=== PATIENT | female | born 1955 | race American Indian/Alaskan Native ===

== ENCOUNTER 2017-08-26 12:33 | Emergency (ER) | payer OTHER ==
[~2017-08-26] VITALS: Ht 157.5 cm; Wt 72.6 kg
[2017-08-26] MEDS ORDERED: BLOOD PRESSURE M (12:47)
[2017-08-26] MEDS ORDERED: ZESTRIL2.5 MG PO (15:06)
[2017-08-26] MEDS ORDERED: CRESTOR10 MG PO (15:06)
[2017-08-26] MEDS ORDERED: OMEPRAZOLE20 MG PO (15:06)
[2017-08-26] MEDS ORDERED: VITAMIN D34000 UNIT PO (15:07)
[2017-08-26] MEDS ORDERED: GLIPIZIDE XL10 MG PO (15:07)
[2017-08-26] MEDS ORDERED: ONDANSETRON ODT8 MG PO (17:13)
== END 2017-08-26 17:23 | disposition home or self-care (01) ==
LOC: ED 12:33
DX: K29.70 Gastritis, unspecified, without bleeding (principal); E11.9 Type 2 diabetes mellitus without complications; J45.909 Unspecified asthma, uncomplicated; Z87.891 Personal history of nicotine dependence; Z79.899 Other long term (current) drug therapy
CPT/HCPCS: 71020; 76705; 80053; 81001; 83690; 85025; 96361; 96374; 96375; 96376; 99284; J1170; J2405; J7030

== ENCOUNTER 2018-07-25 10:59 | Observation (INO) | payer OTHER ==
[~2018-07-25] VITALS: Ht 157.5 cm; Wt 67.7 kg
--- OUTSIDE RECORDS SUMMARY | ~2018-07-25 | XMS | Encounter Summary ---
Demographics + + + | Address | [address] | | | [place] [address] | + + + | Home Phone | | + + + | Preferred Language | Unknown | + + + | Marital Status | Single | + + + | Anabaptism Affiliation | 1074 | + + + | Race | Unknown | + + + | Ethnic Group | Unknown | + + + Author + + + | Author | [facility] | | | and [place] | + + + | Organization | [facility] | | | and [place] | + + + | Address | Unknown | + + + | Phone | Unavailable | + + + Support + + +---------+ + | Name | Relationship | Address | Phone | + + +---------+ + | Dulce Dow | ECON | Unknown | | + + +---------+ + Care Team Providers + +------+ + | Care Assembly Repairer Name | Role | Phone | + +------+ + | Orquidea Dubose PA-C | PCP | | + +------+ + Encounter Details +--------+ + + + + | Date | Type | Department | Care Team | Description | +--------+ + + + + | 05/20/ | Abstract | [facility] | Bre, | | | 2017 | | PHYSIATRY [address] | [address]E [address] | | | | | [place], | [address] [place] | | | | | [place] [address] | [place] [address] | | | | | [phone] | [phone] | | | | | | | | +--------+ + + + + Social History + + + +--------+------+ | Tobacco Use | Types | Packs/Day | Years | Date | | | | | Used | | + + + +--------+------+ | Former Smoker | Cigarettes | | | | + + + +--------+------+ + +---+---+---+ | Smokeless Tobacco: | | | | | Never Used | | | | + +---+---+---+ + + + | Sex Assigned at | Date Recorded | | | | + + + | Not on file | | + + + as of this encounter Plan of Treatment Not on fileas of this encounter Visit Diagnoses Not on filein this encounter"
--- OUTSIDE RECORDS SUMMARY | ~2018-07-25 | XMS | Clinical Summary ---
Demographics + + + | Address | [address] | | | [place] [address] | + + + | Home Phone | | + + + | Preferred Language | Unknown | + + + | Marital Status | Single | + + + | Jew Affiliation | 1074 | + + + | Race | Unknown | + + + | Ethnic Group | Unknown | + + + Author + + + | Author | [facility] | | | and [place] | + + + | Organization | [facility] | | | and [place] | [...] Team Providers + +------+ + | Care Loss Prevention Auditor Name | Role | Phone | + +------+ + | Orquidea Dubose PA-C | PP | | + +------+ + Allergies + + + + + + | Active Allergy | Reactions | Severity | Noted | Comments | | | | | Date | | + + + + + + | Metformin | Other (See Comments) | | 05/20/20 | Reaction not | | | | | 18 | specified in outside | | | | | | medical records | + + + + + + Current Medications + + +-------+---------+------+------+-------+ | Prescription | Sig. | Disp. | Refills | Star | End | Statu | | | | | | t | Date | s | | | | | | Date | | | + + +-------+---------+------+------+-------+ | cyclobenzaprine | Take 10 mg by mouth | | | 05/2 | | Activ | | (FLEXERIL) 10 mg | nightly. | | | 0/20 | | e | | tablet | | | | 11 | | | + + +-------+---------+------+------+-------+ | Aspirin (ADULT | Take 81 mg by mouth | | | 05/2 | | Activ | | ASPIRIN LOW | Daily. | | | 0/20 | | e | | STRENGTH) 81 MG TBDP | | | | 11 | | | + + +-------+---------+------+------+-------+ | simvastatin | Take 80 mg by mouth | | | 05/2 | | Activ | | (ZOCOR) 80 mg tablet | every evening. | | | 0/20 | | e | | | | | | 11 | | | + + +-------+---------+------+------+-------+ | | Take 10-10 mg by | | | 05/2 | | Activ | | ezetimibe-simvastati | mouth every evening. | | | 0/20 | | e | | n (VYTORIN) 10-10 MG | | | | 11 | | | | per tablet | | | | | | | + + +-------+---------+------+------+-------+ | gabapentin | Take 800 mg by mouth | | | 05/2 | | Activ | | (NEURONTIN) 800 MG | Daily. | | | 0/20 | | e | | tablet | | | | 11 | | | + + +-------+---------+------+------+-------+ | glipiZIDE | Take 5 mg by mouth | | | 05/2 | | Activ | | (GLIPIZIDE XL) 5 mg | Daily. | | | 0/20 | | e | | 24 hr tablet | | | | 11 | | | + + +-------+---------+------+------+-------+ | clotrimazole | apply to affected | | | 05/2 | | Activ | | (CLOTRIMAZOLE AF) 1% | area twice daily for | | | 0/20 | | e | | cream | fungal infection | | | 11 | | | + + +-------+---------+------+------+-------+ | albuterol | 2 puffs by mouth | | | 05/2 | | Activ | | (PROVENTIL HFA) 90 | ywice daily as | | | 0/20 | | e | | mcg/puff inhaler | needed for shortness | | | 11 | | | | | of breath | | | | | | + + +-------+---------+------+------+-------+ | omega-3 acid ethyl | two capsules by | | | 05/2 | | Activ | | esters (LOVAZA) 1 g | mouth twice daily | | | 0/20 | | e | | capsule | with meals | | | 11 | | | + + +-------+---------+------+------+-------+ | metformin | take 2 and one half | | | 05/2 | | Activ | | (GLUCOPHAGE) 1000 MG | tablets by mouth | | | 0/20 | | e | | tablet | every evening | | | 11 | | | + + +-------+---------+------+------+-------+ | | Take as directed | | | 09/1 | | Activ | | HYDROcodone-acetamin | when needed | | | 3/20 | | e | | ophen (NORCO) 5-325 | | | | 12 | | | | mg per tablet | | | | | | | + + +-------+---------+------+------+-------+ | metroNIDAZOLE | Take as directed | | | 09/1 | | Activ | | (FLAGYL) 500 MG | when needed | | | 3/20 | | e | | tablet | | | | 12 | | | + + +-------+---------+------+------+-------+ | diazepam (VALIUM) | Take 5 mg by mouth | | | | | Activ | | 5 mg tablet | every 6 hours as | | | | | e | | | needed for Anxiety. | | | | | | + + +-------+---------+------+------+-------+ | lisinopril | Take 2.5 mg by mouth | | | | | Activ | | (PRINIVIL,ZESTRIL) | Daily. | | | | | e | | 2.5 MG tablet | | | | | | | + + +-------+---------+------+------+-------+ | omeprazole | Take 20 mg by mouth | | | | | Activ | | (PRILOSEC) 20 mg | every morning | | | | | e | | capsule | (before breakfast). | | | | | | + + +-------+---------+------+------+-------+ | penicillin | Take 500 mg by mouth | | | | | Activ | | (VEETID) 500 mg | 4 times daily. | | | | | e | | tablet | | | | | | | + + +-------+---------+------+------+-------+ | cholecalciferol | Take 5,000 Units by | | | | | Activ | | (VITAMIN D-3) 5000 | mouth Daily. | | | | | e | | units CAPS | | | | | | | + + +-------+---------+------+------+-------+ | glipiZIDE | Take 10 mg by mouth | | | | | Activ | | (GLUCOTROL XL) 10 mg | daily (with | | | | | e | | ER tablet | breakfast). | | | | | | + + +-------+---------+------+------+-------+ | rosuvastatin | Take 10 mg by mouth | | | | | Activ | | (CRESTOR) 10 mg | nightly. | | | | | e | | tablet | | | | | | | + + +-------+---------+------+------+-------+ Active Problems + + + | Problem | Noted Date | + + + | H-PYLORI | 04/21/2011 | + + + + + | Overview: ICD-10 Record update | + + + + + | DIVERTICULOSIS | 04/21/2011 | + + + | ABDOMINAL PAIN, GENERALIZED | | + + + | COLITIS | | + + + | DIABETES MELLITUS, TYPE II | | + + + | OVERWEIGHT | | + + + + + | Overview: ICD-10 Record update | + + + +---+ | COLONIC POLYPS, ADENOMATOUS | | + +---+ Encounters +--------+ + + + + | Date | Type | Specialty | Care Team | Description | +--------+ + + + + | 05/20/ | Abstract | | Bre, | | | 2017 | | | JOE Nelson | | +--------+ + + + + from Last 3 Months Family History + + + + + | Medical History | Relation | Name | Comments | + + + + + | Alcohol abuse | Father | MONTEE | | | | | TEWEE | | + + + + + | Cancer | Mother | ANSELMO | Lymphoma | | | | VICKI | | | | | COLWASH | | + + + + + | Anemia | Sister | DULCE | Aplastic | | | | COLWASH | | + + + + + + + + + + | Relation | Name | Status | Comments | + + + + + | Father | MONTEE | | Alcoholism | | | TEWEE | (Age | | | | | 30-39) | | + + + + + | Mother | ANSELMO VICKI | Alive | | | | COL[place] | | | + + + + + | Sister | DULCE | Alive | | | | COLWASH | | | + + + + + Social History + [...] on file | | + + + Last Filed Vital Signs + + + + | Vital Sign | Reading | Time Taken | + + + + | Blood Pressure | 102/60 | 03/28/2011 0000 PDT | + + + + | Pulse | - | - | + + + + | Temperature | - | - | + + + + | Respiratory Rate | - | - | + + + + | Oxygen Saturation | - | - | + + + + | Inhaled Oxygen | - | - | | Concentration | | | + + + + | Weight | 83.9 kg (185 lb) | 03/28/2011 0000 PDT | + + + + | Height | 157.5 cm (5' 2") | 03/28/2011 0000 PDT | + + + + | Body Mass Index | 33.84 | 03/28/2011 0000 PDT | + + + + Plan of Treatment + + + + + | Health Maintenance | Due Date | Last Done | Comments | + + + + + | Vaccine: | | | | | Dtap/Tdap/Td (1 - | 4 | | | | Tdap) | | | | + + + + + | Cervical Cancer | | | | | Screening (Pap) | 5 | | | + + + + + | Vaccine: Zoster (1 | | | | | of 2) | 5 | | | + + + + + | Vaccine: Influenza | | | | | (#1) | 8 | | | + + + + + Results Not on filefrom Last 3 Months Insurance + +--------+ +--------+ +---------+ | Payer | Benefi | Subscriber | Type | Phone | Address | | | t Plan | ID | | | | | | / | | | | | | | Group | | | | | + +--------+ +--------+ +---------+ | [place] | MEDICA | [id number] | Medica | [phone] | | | [place] | | id | [id number] | | | | PLUS | | | | | + +--------+ +--------+ +---------+ | [employer] | IHS | [id number] | Indemn | | | | SERVICE | YELLOW | | ity | | | | | [place]WK | | | | | + +--------+ +--------+ +---------+ + +--------+ +--------+ + + | Guarantor Name | Accoun | Relation to | Date | Phone | Billing Address | | | t Type | Patient | of | | | | | | | | | | + +--------+ +--------+ + + | COLLETTE VIEYRA | Person | Self [birth year] | Home: | [address] | | | gerri/Suresh | | [phone] | [place] [address] | | | humberto | | | [phone] | | + +--------+ +--------+ + +
--- OUTSIDE RECORDS SUMMARY | ~2018-07-25 | XMS | Encounter Summary ---
Demographics + + + | Address | [address] | | | [place] [address] | + + + | Home Phone | | + + + | Preferred Language | Unknown | + + + | Marital Status | Single | + + + | Yazidism Affiliation | 1074 | + + + | Race | Unknown | + + + | Ethnic Group | Unknown | + + + Author + + + | Author | [facility] | | | and [place] | + + + | Organization | [facility] | | | and [place] | [...] Team Providers + +------+ + | Care Occupational Therapy Specialist Name | Role | Phone | + [...] [address] | | | | [place], | [address] [place] | | | | | [place] [address] | [place] [address] | | | | | [phone] | [phone] | | | | | | | [...]
--- OUTSIDE RECORDS SUMMARY | ~2018-07-25 | XMS | Clinical Summary ---
Demographics + + + | Address | [address] | | | [place] [address] | + + + | Home Phone | | + + + | Preferred Language | Unknown | + + + | Marital Status | Single | + + + | Catholic Affiliation | 1074 | + + + | Race | Unknown | + + + | Ethnic Group | Unknown | + + + Author + + + | Author | [facility] | | | and [place] | + + + | Organization | [facility] | | | and [place] | [...] Team Providers + +------+ + | Care Soda Dialyzer Name | Role | Phone | + [...] +---------+ | [place] | MEDICA | [id number] | Med[place] | [phone] | | | [place] | | id | [phone] | | | | PLUS | | | | | + +--------+ +--------+ +---------+ | [facility] | IHS | [id number] | Indemn | | | | SERVICE [...] | [phone] | [phone] | [place] [address] | | | [place]to | | | [phone] | | + +--------+ +--------+ + +
--- OUTSIDE RECORDS SUMMARY | ~2018-07-25 | XMS | Encounter Summary ---
Demographics + + + | Address | [address] | | | [place] [address] | + + + | Home Phone | | + + + | Preferred Language | Unknown | + + + | Marital Status | Single | + + + | Baptism Affiliation | 1074 | + + + | Race | Unknown | + + + | Ethnic Group | Unknown | + + + Author + + + | Author | [facility] | | | and [place] | + + + | Organization | [facility] | | | and [place] [...] Team Providers + +------+ + | Care Industrial Pipefitter Journeyman Name | Role | Phone | + [...] [address] | | | | [place], | [address] [place] | | | | | [place] [address] | [place] [address] | | | | | [phone] | [phone] | | | | | | | [...]
--- OUTSIDE RECORDS SUMMARY | ~2018-07-25 | XMS | Clinical Summary ---
Demographics + + + | Address | [address] | | | [place] [address] | + + + | Home Phone | | + + + | Preferred Language | Unknown | + + + | Marital Status | Single | + + + | Adventist Affiliation | 1074 | + + + | Race | Unknown | + + + | Ethnic Group | Unknown | + + + Author + + + | Author | [facility] | | | and [place] | + + + | Organization | [facility] | | | and [place] [...] Team Providers + +------+ + | Care Information Tech Name | Role | Phone | + [...] +---------+ | [employer] | MEDICA | [id number] | Med[place] | [phone] | | | | [place] | | id | [phone] | | | | PLUS | | | | | + +--------+ +--------+ +---------+ | [facility] | IHS | [id number] | Indemn | | | | SERVICE [...] | [phone] | [phone] | [place] [address] | | | [place]to | | | [phone] | | + +--------+ +--------+ + +
[~2018-07-25 10:59] MED LIST: BLOOD PRESSURE M; CRESTOR10 MG PO; GLIPIZIDE XL10 MG PO; OMEPRAZOLE20 MG PO; ONDANSETRON ODT8 MG PO; VITAMIN D34000 UNIT PO; ZESTRIL2.5 MG PO
--- NOTE | 2018-07-25 17:30 | NUR ---
PT ARRIVED TO FLOOR VIA STRETCHER, TRANSFERRED TO HOSPITAL BED INDEPENDENTLY. PT REPORTS NAUSEA AND ABD CRAMPING. ALERT AND ORIENTED. LUNGS CLEAR, ACTIVE BT. IV FLUSHES WELL, DRESSING CDI. PT TAKING SIPS OF WATER. CALL LIGHT WITHIN REACH.
--- NOTE | 2018-07-25 17:52 | NUR ---
NOTIFIED DR. MATTHEWS OF ELEVATED BLOOD PRESSURE. PT ASYMPTOMATIC AT THIS TIME.
--- NOTE | 2018-07-25 18:15 | NUR ---
PT SBA TO RESTROOM, VOIDED AND HAD SMALL LOOSE STOOL. PT BACK TO BED AND HAD APPROX 300ML OF EMESIS, MEDICATED WITH IV PHENERGAN. CALL LIGHT WITHIN REACH.
--- NOTE | 2018-07-25 19:10 | NUR ---
REPORT RECEIVED FROM OFFGOING RN OUTSIDE OF PT'S DOOR DUE TO CONTACT PRECAUTIONS. PT RESTING IN BED WITH EYES CLOSED. CALL LIGHT WITHIN REACH.
--- NOTE | 2018-07-25 20:48 | NUR ---
PATIENT CALLED WANTING TO USE THE BATHROOM. 1 PA SBA. PATIENT IS BACK IN BED. VITAL SIGNS AND I&O DONE AND CHARTED. ICE WATER REFILLED. NO OTHER NEEDS AT THIS TIME. CALL LIGHT AND TABLE WITHIN REACH.
--- NOTE | 2018-07-25 22:23 | NUR ---
PT ASSESSMENT COMPLETE. PT REPORTS NAUSEA, HAD EMESIS 100 ML. PRN ZOFRAN ADMINISTERED. PT REPORTS ZOFRAN IS HELPFUL, FEELING LESS NAUSATED. BT'S ACTIVE. PT REPORTS TENDERNESS TO ABD PALPATION. PT DENIES OTHER NEEDS AT THIS TIME. CALL LIGHT WITHIN REACH.
--- NOTE | 2018-07-26 00:11 | NUR ---
PT RESTING IN BED WITH EYES CLOSED. PT SNORING AUDIBLY. DOES NOT WAKE WHILE GLAZE HANDLER IN DOORWAY. PT APPEARS TO BE SLEEPING. CALL LIGHT WITHIN REACH.
--- NOTE | 2018-07-26 01:56 | NUR ---
PT ASSESSMENT COMPLETE. PT REPORTS THAT SHE IS FEELING MUCH IMPROVED. STATES THAT SHE FEELS LIKE HER SKIN TONE HAS IMPROVED FROM ADMISSION. PT DENIES NAUSEA, SOB, PAIN. BT'S REMAIN ACTIVE. PT DENIES ABD TENDERNESS. PT ASSISTED TO THE BATHROOM. PT ABLE TO VOID. STATES THAT SHE FELT NO URGE TO HAVE BM. STOOL SAMPLE REMAINS UNCOLLECTED AT THIS TIME. PT SLIGHTLY UNSTEADY ON HER FEET, 1 PA ASSIST REQUIRED TO GO TO THE BATHROOM AND BACK TO BED. EDUCATION REINFORCED REGARDING CALL LIGHT USE, NOT GETTING OUT OF BED UNASSISTED. PT STATES UNDERSTANDING. CALL LIGHT WITHIN PT REACH.
--- NOTE | 2018-07-26 06:00 | NUR ---
PT ASSESSMENT COMPLETE. PT CONTINUES TO STATE THAT SHE FEELS MUCH IMPROVED. STATES THAT NAUSEA IS MINIMAL. BT'S ACTIVE. ABD TENDER TO PALPATION. PT ASSISTED UP TO BATHROOM WITH 1 PA. PT CONTINUES TO BE UNABLE TO HAVE BM IN ORDER TO OBTAIN STOOL SAMPLE. PT ASSISTED BACK TO BED, DENIES FURTHER NEEDS AT THIS TIME. CALL LIGHT WITHIN PT REACH.
--- NOTE | 2018-07-26 06:24 | NUR ---
PT SLEPT MOST OF SHIFT. ZOFRAN FOR N/V X 1 @ 0. PT REPORTS FEELING MUCH IMPROVED SINCE YESTERDAY. NO BM THIS SHIFT. STOOL SAMPLE STILL NEEDED. ABD REMAINS TENDER TO PALPATION. ACCUCHMARGARITO, SSI. 1 PA. AMY RUSSO. LR + 20k @ 125.
--- NOTE | 2018-07-26 08:00 | NUR ---
patient setting up in bed eating Breakfast. hand and face washed. fresh ice water given. patient states may want a shower later today, call light in reach. no other needs at this time.
[2018-07-26] MEDS ORDERED: ALKA-SELTZER E1 EACH PO (09:36)
--- NOTE | 2018-07-26 09:37 | NUR ---
MED REC COMPLETE
--- NOTE | 2018-07-26 12:31 | NUR ---
ROUNDED ON PATIENT FOR MEDICATION ADMINISTRATION. REPORTED FEELING NAUSEOUS, PRN ZOFRAN ADMINSTERED. IVF REPLACED. NO COMPLAINTS OF PAIN.
--- NOTE | 2018-07-26 15:04 | NUR ---
ROUNDED ON PATIENT FOR AFTERNOON ASSESSMENT. PATIENT RESTING COMFORTABLY IN BED. CALL LIGHT WITHIN REACH. IV FLUIDS INFUSING. PATIENT REPORTED HAVING THE CHILLS, TEMPERATURE WAS ASSESS TO BE 98.8 F. PATIENT ALSO REPORTED HAVING SOME ABDOMINAL PAIN THAT FELT "TIGHT" AND STATED THAT A SIMILAR PAIN WAS IN HER "LEFT LOWER SIDE", STATES REPOSITIONING HELPS WITH PAIN MANAGEMENT. THIS RN ASSISTED PATIENT UP TO THE RESTROOM, UP TO CHAIR NOW, REPORTED DIZZINESS AFTER USING THE RESTROOM, DIZZINESS RESOLVED AFTER SITTING DOWN. BROUGHT PATIENT WARM BLANKET AND ICE WATER.
--- NOTE | 2018-07-26 18:07 | NUR ---
ROUNDED ON PATIENT FOR MEDICATION ADMINSTRATION, RESTING COMFORTABLY IN BED. FAMILY AT BEDSIDE. PATIENT REPORTS HAVING NAUSEA AND DECREASED APPETITE, "THATS WHY I COULDN'T EAT MY DINNER", PATIENT STATES THEY WOULD LIKE SOMETHING FOR NAUSEA, PRN URIEL PROVIDED. PATIENT UP TO BATHROOM WITH ASSISTANCE FROM THIS RN, CHURCH ADMINISTRATOR NOW WITH PATIENT.
--- NOTE | 2018-07-26 18:25 | NUR ---
URIEL X2. POOR APPETITE. SBA TO BATHROOM. LR 20KCL @ 125. TIMING OFF ON JAN DUE TO PHARMACY NEEDING TO KNOW WHEN NEXT BAG NEEDED TO BE MADE. MAG RIDER THIS MORNING. MAG 1.2. ADA DIET. ACCU CHECKS.
--- NOTE | 2018-07-26 18:34 | NUR ---
PATIENT UP TO BATHROOM, 1 PERSON ASSIST. RN IN ROOM. RN TOOK VITALS AND I'S & O'S. PATIENT NOW BACK TO BED, 1 PERSON ASSIT. FRESHWATER GIVEN. CALL LIGHT IN REACH. NO FURTHER NEEDS AT THIS TIME.
--- NOTE | 2018-07-26 18:45 | NUR ---
PATIENT SLEEPING. FRESH WATER GIVEN , CALL LIGHT IN REACH, ALARM ON . NO OTHER NEEDS AT THIS TIME.
--- NOTE | 2018-07-26 19:25 | NUR ---
PT RESTING IN BED, ALERT AND ORIENTED. PT DENIES NAUSEA OR PAIN. REPORT RECEIVED FROM COLTEN LUCERO AND COLTEN THOMPSON. CALL LIGHT AND H20 IN REACH AND PT DENIES HAVING ANY QUESTIONS OR CONCERNS.
--- NOTE | 2018-07-26 21:00 | NUR ---
PT RESTING IN BED,ASSESSMENT COMPLETED PT REPORTS NAUSEA SO PHENERGAN IV TO BE ADMINISTERED. CALL LIGHT/H20 IN REACH. NO FURTHER CONCERNS OR REQUESTS VOICED.
--- NOTE | 2018-07-26 21:46 | NUR ---
ROUNDED CHARGE. PATIENT ASSISTED TO THE RESTROOM A SBA. PATIENT WAS ABLE TO VOID. PATIENT IS NOW BACK IN BED RESTING. PATIENT DENIES ANY COMMENTS, QUESTIONS, OR CONCERNS. PATIENT DENIES ANY FURTHER NEEDS. CALL LIGHT IN REACH.
--- NOTE | 2018-07-27 00:45 | NUR ---
Pt resting in bed, respirations even and unlabored. Call light in reach and pt appears to be sleeping comfortably.
--- NOTE | 2018-07-27 02:02 | NUR ---
pt up to restroom with standby assist. pt reports 9/10 pain to abdomen and to back. pt states back pain. dilaudid 0.5mg administered and po tylenol also administered. pt denies nausea or sob. assessment completed. call light and h20 in reach. pt denies further needs or concerns.
--- NOTE | 2018-07-27 04:00 | NUR ---
RECEIVED REPORT FROM DUNCAN AT THIS TIME. PT LAYING ON HER LEFT SIDE, RESP EVEN AND UNLABORED. IV INFUSING PER ORDER, CALL LIGHT WITHIN REACH.
--- NOTE | 2018-07-27 05:13 | NUR ---
PT WOKE FOR SCAN IV FLUIDS. WENT BACK TO SLEEP, NO COMPLAINTS.
--- NOTE | 2018-07-27 05:59 | NUR ---
pt ambulated to bathroom, denied dizziness. states sl nausea. vitals wnl, stated her favorite meal was last night, salmon, couldnt' eat as much hopes today she can eat better.
--- NOTE | 2018-07-27 06:13 | NUR ---
TOOK OVER CARE FROM DUNCAN AT 0400. PT SLEPT UP TIL LAB CAME IN TO DRAW BLOOD. HAD LAST NAUSEA MED NEAR 2120, PAIN MED LAST AT 0155 FOR BACK PAIN. ASSISTED PT TO BATHROOM AFTER 0600, DENIED PAIN, HAS SL NAUSEA. WASHED FACE, HANDS STATED SHE FELT BETTER, HER SORE THROAT IS BETTER, BACK TO BED, OFFERED AND ACCEPTED SUGAR FREE JELLO. HOPING SHE CAN GO HOME TODAY, SAID SHE HAD "COLOR" BACK IN HER FACE. IV LR WITH 20 KCL INFUSING 125 IN L HAND, ROOM AIR SATS IN THE MID 90'S.
--- NOTE | 2018-07-27 07:10 | NUR ---
RECIEVED CHANGE OF SHIFT REPORT FROM MELISA ABEL. PATIENT RESTING COMFORTABLY IN BED, REPORTS HAVING A SORE ARM FROM AM LAB DRAWS, MELISA ABEL PLANNED TO BRING PATIENT WARM PACK TO SOOTHE ARM. CALL LIGHT WITHIN REACH. WHITE BOARD UPDATED.
--- NOTE | 2018-07-27 08:18 | NUR ---
PATIENT WAS SETTING UP IN BED, FACE WASHED, FRESH WATER WAS GIVEN. CALL LIGHT WITH IN REACH. NO OTHER NEEDS AT THIS TIME.
--- NOTE | 2018-07-27 10:09 | NUR ---
ROUNDED ON PATIENT FOR MORNING MEDICATION ADMINISTRATION AND ASSESSMENT, PATIENT TAKING SHOWER AT THIS TIME. WILL PERFORM THESE TASKS WHEN PATIENT IS FINISED WITH SHOWER.
--- NOTE | 2018-07-27 10:20 | NUR ---
PATIENT RETURNED SAFELY BACK TO BED AFTER SHOWER, STATES "THE SHOWER MADE MY BACK FEEL BETTER", ANTISLIP SOCK PLACED BACK ON PATIENT. MORNING ASSESSMENT AND MORNING MEDICATIONS ADMINISTERED. HOSPITALIST IN ROOM TO DISCUSS PLAN FOR DISCHARGE TODAY, ORDERED IV FLUIDS AND IV TO BE D/C'd. IV REMOVED, CATHETER INTACT, PATIENT TOLERATED WELL. PATIENT REPORTS THAT PRESSURE AND DISCOMFORT IN ABDOMEN CAUSES HER TO HAVE A DECREASED APPETITE, WILL CONTINUE TO MONIOR. NO REPORTS OF PAIN. POSSESSIONS AT BEDSIDE. CALL LIGHT WITHIN REACH. PATIENTS ROOM CLEANED.
--- NOTE | 2018-07-27 11:15 | NUR ---
DISCUSSED WITH PATIENT WHAT TIME WORKS WELL TO BE DISCHARGED AND THEIR MODE OF TRANSPORTATION. PLAN TO CALL SISTER AFTER LUNCH TO ARRANGE TRANSPORTATION HOME EARLY THIS AFTERNOON.
--- NOTE | 2018-07-27 11:42 | NUR ---
ROUNDED ON PATIENT FOR ACCU CHECK, B, NO INSULIN COVERAGE NEEDED. PATIENT REPORTS ABDOMINAL DISCOMFORT AND UNABLE TO HAVE A BOWEL MOVEMENT. PLAN TO AMBULATE WITH PATIENT IN HALLWAY TO HELP ALLEVIATE ABDOMINAL DISCOMFORT.
[2018-07-27] MEDS ORDERED: ZOFRAN4 MG PO (11:46)
--- NOTE | 2018-07-27 12:26 | NUR ---
AMBULATED WITH PATIENT IN HALLWAY, PATIENT STATED "IT FELT GOOD TO FINALLY WALK". PATIENT COMPLAINED OF SOME SOB AFTER WALK, O2 SATS: 99% SITTING ON EDGE OF BED, SOB DECREASED THE LONGER PATIENT RESTED.
== END 2018-07-27 12:37 | disposition home or self-care (01) ==
LOC: ED 10:59 → MS 11:00
PROVIDERS: ADMIT Internal Medicine
DX: K52.9 Noninfective gastroenteritis and colitis, unspecified (principal); E11.9 Type 2 diabetes mellitus without complications; E87.6 Hypokalemia; F17.200 Nicotine dependence, unspecified, uncomplicated; Z79.84 Long term (current) use of oral hypoglycemic drugs; Z79.899 Other long term (current) drug therapy
CPT/HCPCS: 36415; 74177; 80048; 80053; 81001; 83690; 83735; 85025; 96361; 96365; 96374; 96375; 96376; 99285; G0378; J1170; J1815; J2405; J2550; J3475; J3480; J7030; J7120; Q9967

== ENCOUNTER 2021-02-05 23:08 | Emergency (ER) | payer MEDICARE, OTHER ==
[~2021-02-05] VITALS: Ht 157.5 cm; Wt 67.7 kg
[~2021-02-05 23:08] MED LIST changes: +ALKA-SELTZER E1 EACH PO; +ZOFRAN4 MG PO
[2021-02-05] MEDS ORDERED: ONGLYZA5 MG PO (23:40)
[2021-02-05] MEDS ORDERED: FENOFIBRATE54 MG PO (23:40)
[2021-02-05] MEDS ORDERED: ROSUVASTATIN CA10 MG PO (23:40)
[2021-02-05] MEDS ORDERED: VENTOLIN HFA18 GM INH (23:41)
[2021-02-06] MEDS ORDERED: ONDANSETRON ODT4 MG PO (01:14)
[2021-02-06] MEDS ORDERED: DICYCLOMINE HCL20 MG PO (01:14)
== END 2021-02-06 01:30 | disposition home or self-care (01) ==
LOC: ED 23:08
DX: R10.12 Left upper quadrant pain (principal); R19.7 Diarrhea, unspecified; R11.10 Vomiting, unspecified; E87.6 Hypokalemia; E83.42 Hypomagnesemia; E11.9 Type 2 diabetes mellitus without complications; J45.909 Unspecified asthma, uncomplicated; F17.200 Nicotine dependence, unspecified, uncomplicated; Z79.899 Other long term (current) drug therapy; Z91.018 Allergy to other foods
CPT/HCPCS: 74177; 80053; 81001; 83605; 83690; 83735; 85025; 96375; 99285-25; J2270; J2405; J7121; Q9967

== ENCOUNTER 2025-10-15 19:01 | Emergency (ER) | payer MEDICARE, OTHER ==
[~2025-10-15] VITALS: Ht 162.6 cm; Wt 68.5 kg
[~2025-10-15 19:01] MED LIST changes: +ALBUTEROL2.5 MG/3 M INH; +ALL DAY ALLERGY10 M4 PO; +CALCIUM-VITAMI1 EAC1 PO; +DICYCLOMINE HCL20 MG PO; +DOCUSATE SODIU100 MG PO; +FENOFIBRATE54 MG PO; +GAVISCON EXTRA355 ML PO; -GLIPIZIDE XL10 MG PO; +GLIPIZIDE10 MG PO; +MAGNESIUM OXID400 M1 PO; +ONDANSETRON ODT4 MG PO; +ONGLYZA5 MG PO; +ROSUVASTATIN CA10 MG PO
[2025-10-15] MEDS ORDERED: IBLOOD GLUCOSE TEST STRIP 1 EA TEST VI ONE ×2 (19:15→21:00)
[2025-10-15] MEDS ORDERED: MORPHINE SULFATE 4 MG/ML VIAL IV ONE (19:15)
[2025-10-15] MEDS ORDERED: SODIUM CHLORIDE 0.9% 1,000 ML IV ONE (19:15)
[2025-10-15 19:25] LABS: BASOPHILS 0.3 % (0.1-1.2); EOSINOPHILS 0 % (0.7-5.8); LYMPHOCYTES 8.5 % (19.3-51.7); MCH 28.5 PG (25.6-32.2); MCHC 34.4 g/dL (32.2-35.5); MCV 82.7 fL (79.4-94.8); MONOCYTES 7.5 % (4.7-12.5); NEUTROPHILS 82.9 % (34.0-71.1); RBC 5.13 M/uL (3.93-5.22)
[2025-10-15 19:48] LABS: AST (SGOT) 33.0 U/L (15-37); GLOMERULAR FILTRATION RATE,EST 33.0 mL/min (>60); PROTEIN, TOTAL 8.1 g/dL (6.4-8.2); UREA NITROGEN 27.0 mg/dL (7-18)
[2025-10-15 19:58] LABS: ALT (SGPT) 15.0 U/L (14-59)
[2025-10-15] MEDS ORDERED: Insulin Regular, Human 100 UNIT/ML ML IV ONE (20:00)
[2025-10-15] MEDS ORDERED: PANTOPRAZOLE SODIUM 40 MG/10 ML VIAL IV ONE (20:45)
[2025-10-15 20:59] LABS: BLOOD/HGB, URINE MODERATE (Negative); KETONE, URINE TRACE (Negative); LEUK ESTERASE, URINE NEGATIVE (negative); NITRITE, URINE NEGATIVE (negative)
[2025-10-15] MEDS ORDERED: SUCRALFATE 1 GM TAB PO ONE (21:00)
[2025-10-15] MEDS ORDERED: LIDOCAINE & ANTACID 35 ML BTL PO ONE (21:00)
[2025-10-15 21:19] LABS: BACTERIA, URINE 1+ /hpf (negative); CRYSTALS, URINE NONE SEEN (0-1+); EPITHELIAL CELLS, URINE SQUAMOUS 2+ /lpf (0-1+)
[2025-10-15 21:20] LABS: CASTS, URINE NONE SEEN \\lpf; REFLEX CULTURE, URINE No (No)
[2025-10-15] MEDS ORDERED: REGLAN10 MG PO (21:44)
[2025-10-15] MEDS ORDERED: ONDANSETRON ODT8 MG PO (21:44)
[2025-10-15] MEDS ORDERED: HYDROCODON-ACE1 EA10 PO (21:44)
[2025-10-15] MEDS ORDERED: CARAFATE1 GM PO (21:44)
[2025-10-15] MEDS ORDERED: PROTONIX40 MG PO (21:44)
[2025-10-15] MEDS ORDERED: HYDROCODONE BIT/ACETAMINOPHEN 5/325 MG 1 TAB HOME.PACK PO ONE (21:45)
[2025-10-15] MEDS ORDERED: ONDANSETRON 4 MG HOME.PACK SL ONE (21:45)
[2025-10-15 21:57] VITALS: BP 101/79
== END 2025-10-15 21:59 | disposition home or self-care (01) ==
LOC: ED 19:01
PROVIDERS: Family Medicine
DX: K85.90 Acute pancreatitis without necrosis or infection, unspecified (principal); K29.70 Gastritis, unspecified, without bleeding; E11.9 Type 2 diabetes mellitus without complications; J45.909 Unspecified asthma, uncomplicated; F17.200 Nicotine dependence, unspecified, uncomplicated; Z91.018 Allergy to other foods; Z79.899 Other long term (current) drug therapy
CPT/HCPCS: 36415; 74177; 80053; 81001; 83690; 85025; 85060; 96361; 96374; 96375; 99284-25; A9270; J1815; J2270; J2405; J2470; J7030; Q9967